=== PATIENT | female | born 1985 | race Caucasian/White ===

== ENCOUNTER 2016-12-30 22:01 | Emergency (ER) | payer BC ==
--- NOTE | 2016-12-30 22:47 | RAD ---
LEFT ELBOW FOUR VIEWS: 12/30/16 No definite fracture or joint effusion was evident at this time. Should pain persist, delayed follow up images might be considered. Currently, there were no areas suspicious for fracture. IMPRESSION: No acute finding. POS: HOME
== END 2016-12-30 22:35 | disposition home or self-care (01) ==
LOC: BURERS 22:01
DX: S50.02XA Contusion of left elbow, initial encounter (principal); F32.9 Major depressive disorder, single episode, unspecified; W18.30XA Fall on same level, unspecified, initial encounter; Y92.002 Bathroom of unspecified non-institutional (private) residence as the place of occurrence of the external cause

== ENCOUNTER 2018-02-20 19:49 | Observation (INO) | payer BC ==
[2018-02-20] MEDS ORDERED: Pantoprazole 40 MG VIAL ONE (20:13)
[2018-02-20] MEDS ORDERED: Famotidine In NaCl 20 mg/50 ml Premix Bag ONE (20:15)
[2018-02-20] MEDS ORDERED: Famotidine/PF 20 mg/2ml Vial SLOW IVP SCH (20:15)
[2018-02-20] MEDS ORDERED: Lidocaine Viscous Sol 2% 15 ml UD Cup ONE (20:15)
[2018-02-20] MEDS ORDERED: Milk Of Magnesia 30 ML UDCUP ONE (20:17)
[2018-02-20 20:18] LABS: Red Blood Cell (RBC) Count 4.33 mill/uL (4.20-5.40); White Blood Cell (WBC) Count 7.5 thou/uL (4.8-10.8)
[2018-02-20 20:19] LABS: #Basophils 0.1 thou/uL (0.0-0.2); #Eosinphils 0.1 thou/uL (0.0-0.7); #Monocytes 0.8 thou/uL (0.11-0.59); %Basophils 0.6 % (0.0-1.0); %Eosinophils 1.1 % (0.0-10.0); %Lymphocytes 22.1 % (21.0-51.0); %Monocytes 10.3 % (0.0-10.0); %Neutrophils 65.9 % (42.0-75.0); MDiff Complete? YES; Manual Diff?? NO; Mean Corpuscular HGB CONC 36.3 g/dL (32.0-36.0); Mean Corpuscular Hemoglobin 30.1 pg (27.0-31.0); Mean Corpuscular Volume 83.1 fL (81.0-99.0); Mean Platelet Volume 5.3 fL (7.4-10.4); Platelet Count 265 thou/uL (130-400); RBC Distribution Width 10.5 % (11.5-14.5)
[2018-02-20 20:29] LABS: Bilirubin Negative (Negative); Blood, Urine Trace (Negative); Clarity Hazy (Clear); Glucose, Urine (Dipstick) Negative (Negative); Leukocyte Large (Negative); Nitrite Negative (Negative); Protein, Urine (Dipstick) Negative (Neg-Trace); Specific Gravity, Urine 1.015 (1.005-1.030); Urobilinogen 0.2 mg/dL (0.2-1.0); pH, Urine 6.5 (5.0-9.0)
[2018-02-20 20:30] LABS: ALT (SGPT) 20 U/L (8-55); AST (SGOT) 28 U/L (5-34); Albumin 3.8 g/dL (3.5-5.0); Alkaline Phosphatase 53 U/L (40-150); Anion Gap 13 mmol/L (10-20); BUN (Urea Nitrogen) 8 mg/dL (7.0-18.7); Bilirubin, Total 0.4 mg/dL (0.2-1.2); Calc. Creatinine Clearance 0 mL/min (70-130); Calcium 8.7 mg/dL (7.8-10.44); Carbon Dioxide 23 mmol/L (22-29); Chloride 107 mmol/L (98-107); Estimated GFR-MDRD 90; Globulin 3.1 g/dL (2.4-3.5); Glucose 120 mg/dL (70-105); Lipase 380 U/L (8-78); Potassium 3.7 mmol/L (3.5-5.1); Protein, Total 6.9 g/dL (6.0-8.3); Sodium 139 mmol/L (136-145)
[2018-02-20 20:30] LABS: Bacteria/HPF 1+ HPF (None Seen); Crystals/HPF 1+ AMORPH PHOS HPF (Negative); Pregnancy Test - Urine (BHCG) Negative (Negative); Pregu Control Background? CLEAR/WHITE (CLR/WHITE); Pregu Control Bar Appear? YES (CONTROL BAR); RBC/HPF 0-3 HPF (0-3); Specific Gravity 1.015 (1.002-1.036)
[2018-02-20] MEDS ORDERED: Lidocaine 2% Viscous Solution 10 ML, Aluminum & Magnesium Hydroxide 30 ML SSW SCH (20:30)
[2018-02-20 20:32] LABS: CKMB 0.8 ng/mL (0-6.6); Troponin I Less than 0.010 ng/mL (< 0.028)
[2018-02-20] MEDS ORDERED: Morphine 4 MG/ML Carpuject ONE (20:43)
[2018-02-20] MEDS ORDERED: Nitrofurantoin Monohyd/M-Cryst 100 MG CAP PO SCH (21:15)
[2018-02-20] MEDS ORDERED: Morphine 4 MG/ML Carpuject SLOW IVP PRN (22:25)
[2018-02-20 22:41] VITALS: BMI 26.7
[2018-02-20] MEDS: Sodium Chloride 0.9% 1,000 ML IV SCH (22:55)
[2018-02-21 01:15] LABS: #Lymphocytes 1.7 thou/uL (1.20-3.40)
[2018-02-21 07:05] LABS: #Lymphocytes 1.4 thou/uL (1.20-3.40); #Monocytes 0.6 thou/uL (0.11-0.59); #Neutrophils 2.4 thou/uL (1.40-6.50); %Basophils 0.6 % (0.0-1.0); %Eosinophils 0.9 % (0.0-10.0); %Lymphocytes 31.8 % (21.0-51.0); %Neutrophils 53.8 % (42.0-75.0); Hemoglobin 11.4 g/dL (12.0-16.0); Mean Corpuscular HGB CONC 36.6 g/dL (32.0-36.0); Mean Corpuscular Hemoglobin 30.4 pg (27.0-31.0); Mean Corpuscular Volume 83.1 fl (81.0-99.0); Platelet Count 211 thou/uL (130-400); RBC Distribution Width 10.5 % (11.5-14.5); Red Blood Cell (RBC) Count 3.76 mill/uL (4.20-5.40); White Blood Cell (WBC) Count 4.5 thou/uL (4.8-10.8)
[2018-02-21 07:19] LABS: ALT (SGPT) 55 U/L (8-55); AST (SGOT) 71 U/L (5-34); Albumin 3.3 g/dL (3.5-5.0); Alkaline Phosphatase 71 U/L (40-150); Anion Gap 10 mmol/L (10-20); BUN (Urea Nitrogen) 6 mg/dL (7.0-18.7); Bilirubin, Total 0.4 mg/dL (0.2-1.2); Calc. Creatinine Clearance 153 mL/min (70-130); Calcium 8.4 mg/dL (7.8-10.44); Carbon Dioxide 22 mmol/L (22-29); Chloride 112 mmol/L (98-107); Estimated GFR-MDRD Greater than 90; Globulin 2.5 g/dL (2.4-3.5); Glucose 87 mg/dL (70-105); Lipase 67 U/L (8-78); Protein, Total 5.8 g/dL (6.0-8.3); Sodium 140 mmol/L (136-145)
[2018-02-21] MEDS ORDERED: Sodium Chloride 0.9% 500 ML IVPB SCH (07:30)
[2018-02-21] MEDS ORDERED: Acetaminophen 650 MG Suppository PR PRN (07:32)
[2018-02-21] MEDS ORDERED: Acetaminophen 325 MG TAB PO PRN (07:32)
[2018-02-21] MEDS ORDERED: Ondansetron ODT 4 MG TAB PO PRN (07:33)
--- NOTE | 2018-02-21 08:53 | CT ---
CT OF THE ABDOMEN WITH CONTRAST: Date: 02/21/[address] of the abdomen was performed following an injection of IV contrast. Oral contrast was also used. Coronal and sagittal reconstructions were done afterwards. FINDINGS: The lung bases are clear. The liver and spleen appear normal in size and internal appearance. There h as been a prior cholecystectomy. Regarding the pancreas, there is no particular stranding around it, fluid collections, or any other typical CT findings of pancreatitis. There is no dilation of the comm on bile duct. At most, one might remark that the duodenal c-loop may have roque that are very slightl y thickened, which sometimes can occur secondarily in the case of adjacent inflammation (from the [place]). Other than this, there are no signs to point towards the pancreas. The adrenal glands, kidney s, and abdominal aorta appear normal. The mesenteric vessels fill appropriately. There is no distention of bowel to suggest obstruction. No bowel wall thickening seen. Some fluid is seen in small bowel, but the loops are not dilated, a very nonspecific finding. The patient's appendi x was identified and appeared normal. There is no free air or free fluid in the abdomen. The lowest s lice suggests some concentric bulging of the L5-S1 disc. IMPRESSION: No acute abdominal findings. No typical findings of pancreatitis, aside from questionable mild thicke liz of the duodenum as it goes around the pancreatic head. POS: HOME
[2018-02-21] MEDS ORDERED: Iopamidol 370 76% 100 ML VIAL ONE (09:00)
[2018-02-21] MEDS ORDERED: Nitrofurantoin Monohyd/M-Cryst 100 MG CAP PO SCH (09:00)
[2018-02-21] MEDS: Sodium Chloride 0.9% 1,000 ML IV SCH (09:06)
[2018-02-21 14:30] VITALS: BP 125/74; TEMP 98.6
== END 2018-02-21 17:35 | disposition home or self-care (01) ==
LOC: BURERS 19:49 → BURMED 21:37
PROVIDERS: ADMIT Family Medicine; ATTEND Family Medicine
DX: K85.90 Acute pancreatitis without necrosis or infection, unspecified (principal); E03.9 Hypothyroidism, unspecified; F32.9 Major depressive disorder, single episode, unspecified; Z79.3 Long term (current) use of hormonal contraceptives; Z79.899 Other long term (current) drug therapy
CPT/HCPCS: 36415; 74160; 80053; 81003; 81015; 81025; 82150; 82553; 83690; 84484; 85025; 93005; 96361; 96365; 96367; 96375; A4216; C9113; G0378; J1956; J2270

== ENCOUNTER 2018-11-15 20:51 | Emergency (ER) | payer BC ==
[2018-11-15] MEDS ORDERED: diphenhydrAMINE 25 MG CAP ONE ×2 (21:15)
[2018-11-15] MEDS ORDERED: Ibuprofen 800 MG TAB ONE (21:16)
[2018-11-15] MEDS ORDERED: Prochlorperazine 10 MG/2 ML VIAL ONE ×2 (21:17→21:19)
== END 2018-11-15 21:57 | disposition home or self-care (01) ==
LOC: BURERS 20:51
DX: R07.89 Other chest pain (principal); G44.209 Tension-type headache, unspecified, not intractable; E03.9 Hypothyroidism, unspecified; F32.9 Major depressive disorder, single episode, unspecified
CPT/HCPCS: 99284; J0780; Q0163

== ENCOUNTER 2020-12-06 13:04 | Emergency (ER) | payer BC ==
[~2020-12-06 13:04] MED LIST: Iopamidol 370 76% 100 ML VIAL ONE
[2020-12-06 14:20] LABS: #Basophils 0.1 thou/uL (0.0-0.2); #Eosinphils 0.1 thou/uL (0.0-0.7); #Lymphocytes 2.2 thou/uL (1.20-3.40); #Monocytes 0.5 thou/uL (0.11-0.59); #Neutrophils 3.5 thou/uL (1.40-6.50); %Basophils 1.1 % (0.0-1.0); %Eosinophils 1.6 % (0.0-10.0); %Lymphocytes 34.1 % (21.0-51.0); %Monocytes 8.1 % (0.0-10.0); Hemoglobin 12.7 g/dL (12.0-16.0); Mean Corpuscular HGB CONC 32.3 g/dL (32.0-36.0); Mean Corpuscular Volume 86.7 fL (78.0-98.0); Mean Platelet Volume 6.2 fL (7.4-10.4); Platelet Count 286 thou/uL (130-400); RBC Distribution Width 11.8 % (11.5-14.5); Red Blood Cell (RBC) Count 4.52 mill/uL (4.20-5.40); White Blood Cell (WBC) Count 6.4 thou/uL (4.8-10.8)
[2020-12-06 14:27] LABS: ALT (SGPT) 41 U/L (8-55); AST (SGOT) 33 U/L (5-34); Albumin 4.6 g/dL (3.5-5.0); Alkaline Phosphatase 71 U/L (40-110); Anion Gap 15 mmol/L (10-20); BUN (Urea Nitrogen) 12 mg/dL (7.0-18.7); Bilirubin, Total 0.3 mg/dL (0.2-1.2); Calc. Creatinine Clearance 0 mL/min (70-130); Calcium 9.9 mg/dL (7.8-10.44); Carbon Dioxide 24 mmol/L (22-29); Chloride 103 mmol/L (98-107); Globulin 3.3 g/dL (2.4-3.5); Glucose 80 mg/dL (70-105); Lipase 40 U/L (8-78); Potassium 4.1 mmol/L (3.5-5.1); Protein, Total 7.9 g/dL (6.0-8.3); Sodium 138 mmol/L (136-145)
[2020-12-06 14:33] LABS: Bilirubin Negative (Negative); Blood, Urine Negative (Negative); Clarity Slightly Cloudy (Clear); Glucose, Urine (Dipstick) Negative (Negative); Ketone, Urine Negative (Negative); Leukocyte Negative (Negative); Nitrite Negative (Negative); Protein, Urine (Dipstick) Negative (Neg-Trace); Urobilinogen 0.2 mg/dL (Less than 2)
[2020-12-06 14:37] LABS: Pregnancy Test - Urine (BHCG) Negative (Negative)
[2020-12-06 14:38] LABS: Pregu Control Background? CLEAR/WHITE (CLR/WHITE); Pregu Control Bar Appear? YES (CONTROL BAR)
== END 2020-12-06 16:00 | disposition home or self-care (01) ==
LOC: BURERS 13:04
DX: R10.32 Left lower quadrant pain (principal)
CPT/HCPCS: 74177; 80053; 81003; 81025; 83690; 85025; Q9967